=== PATIENT | female | born 1965 | race Two or more races ===

== ENCOUNTER 2017-04-06 10:31 | Emergency (ER) | payer OTHER ==
[2017-04-06 11:02] VITALS: BP 142/79; PULSE 100; TEMP 98.1; BMI 45.1
--- NOTE | 2017-04-06 11:14 | PDOC ---
History of Present Illness - General History Source: Patient Exam Limitations: No Limitations - History of Present Illness Initial Comments: 04/06/17 11:56 The patient is a 52 year old female with a significant PMH of COPD who presents to the emergency department with right leg pain and head soreness s/p fall and vomiting in the setting of chronic vaginal bleeding beginning approximately yesterday. The patient reports she has been intermittently vaginally bleeding for 2 years which has been addressed by her PCP but believes it has worsened recently. She reports feeling dizzy yesterday while going to the bathroom and falling on her right leg and head, believing her dizziness to be a result of her vaginal bleeding. She denies LOC. The patient denies chest pain, shortness of breath, and dizziness. Denies fever, chills, diarrhea and constipation. Denies dysuria, frequency, urgency and hematuria. Allergies: NKA Past surgical history: None reported. Social history: Current everyday smoker. No reported alcohol or drug use. PCP: From [place]. <Shaggy Kovacs - Last Filed: 04/06/17 12:25> - General History Source: Patient Exam Limitations: No Limitations <Ching March - Last Filed: 04/09/17 21:23> - General Chief Complaint: Vaginal Bleeding Stated Complaint: LT SIDE PAIN Time Seen by Provider: 04/06/17 11:14 Past History <Shaggy Kovacs - Last Filed: 04/06/17 12:25> - Past Medical History Asthma: Yes COPD: Yes - Reproductive History Cervical CA: No Dysfunctional Uterine Bleeding: No Ectopic : No Endometrial CA: No Polycystic Ovaries: No Tubal Ligation: No - Immunization History Immunization Up to Date: Yes - Suicide/Smoking/Psychosocial Hx Smoking Status: Yes Smoking History: Current every day smoker Have you smoked in the past 12 months: Yes Number of Cigarettes Smoked Daily: 10 Cigars Per Day: 2 Information on smoking cessation initiated: Yes 'Breaking Loose' booklet given: 04/06/17 Hx Alcohol Use: No Drug/Substance Use Hx: No Substance Use Type: None <Ching March - Last Filed: 04/09/17 21:23> - Past Medical History Allergies/Adverse Reactions: Allergies Allergy/AdvReac Type Severity Reaction Status Date / Time No Known Allergies Allergy Verified 04/06/17 10:55 Home Medications: Ambulatory Orders Albuterol Sulfate Inhaler - [Ventolin Hfa Inhaler -] 1 - 2 inh PO Q4H #1 inhaler 08/11/15 Cyclobenzaprine HCl [Flexeril -] 10 mg PO TID #21 tablet 04/06/17 Lidocaine 5% Patch [Lidoderm Patch -] 1 patch TP DAILY PRN #30 patch 04/06/17 Naproxen [Naprosyn -] 500 mg PO BID PRN #14 tablet 04/06/17 Review of Systems - Review of Systems Able to Perform ROS?: Yes Comments:: 04/06/17 11:56 GENERAL/CONSTITUTIONAL: No fever or chills. No weakness. HEAD, EYES, EARS, NOSE AND THROAT: No change in vision. No ear pain or discharge. No sore throat. CARDIOVASCULAR: No chest pain or shortness of breath. RESPIRATORY: No cough, wheezing, or hemoptysis. GASTROINTESTINAL: (+) Vomiting. No diarrhea or constipation. GENITOURINARY: (+) Vaginal bleeding. No dysuria, frequency, or change in urination. MUSCULOSKELETAL: (+) Right leg pain. No joint pain. No neck or back pain. SKIN: No rash NEUROLOGIC: No headache, vertigo, loss of consciousness, or change in strength/ sensation. ENDOCRINE: No increased thirst. No abnormal weight change. HEMATOLOGIC/LYMPHATIC: No anemia, easy bleeding, or history of blood clots. ALLERGIC/IMMUNOLOGIC: No hives or skin allergy. <Shaggy Kovacs - Last Filed: 04/06/17 12:25> *Physical Exam - Vital Signs Last Vital Signs Temp Pulse Resp BP Pulse Ox 98.1 F 100 H 20 142/79 100 04/06/17 10:57 04/06/17 10:57 04/06/17 10:57 04/06/17 10:57 04/06/17 10:57 - Physical Exam Comments: 04/06/17 12:25 GENERAL: Awake, alert, and fully oriented, in no acute distress HEAD: No signs of trauma EYES: PERRLA, EOMI, sclera anicteric, conjunctiva clear ENT: Auricles normal inspection, hearing grossly normal, nares patent, oropharynx clear without exudates. Moist mucosa NECK: Normal ROM, supple, no lymphadenopathy, JVD, or masses LUNGS: Breath sounds equal, clear to auscultation bilaterally. No wheezes, and no crackles HEART: Regular rate and rhythm, normal S1 and S2, no murmurs, rubs or gallops ABDOMEN: Soft, nontender, normoactive bowel sounds. No guarding, no rebound. No masses EXTREMITIES: (+) Right hip, knee, and ankle tenderness to palpation. Normal range of motion, no edema. No clubbing or cyanosis. No cords, erythema, or tenderness NEUROLOGICAL: Cranial nerves II through XII grossly intact. Normal speech. SKIN: Warm, Dry, normal turgor, no rashes or lesions noted. <Shaggy Kovacs - Last Filed: 04/06/17 12:25> - Vital Signs Last Vital Signs Temp Pulse Resp BP Pulse Ox 98.1 F 100 H 20 142/79 100 04/06/17 10:57 04/06/17 10:57 04/06/17 10:57 04/06/17 10:57 04/06/17 10:57 <Ching aMrch - Last Filed: 04/09/17 21:23> ED Treatment Course - LABORATORY CBC & Chemistry Diagram: 04/06/17 12:30 04/06/17 12:30 <Ching March - Last Filed: 04/09/17 21:23> Medical Decision Making - Medical Decision Making 04/06/17 15:24 Ms. Sampson is a 52 yo F with multiple medical problems She presents to the ER s/p a fall with leg pain Pt denies lightheadedness or dizziness Pt denies chest pain On examination: Pt is ambulatory with a cane RRR CTA B/L Lower abdominal tenderness to palpation Tenderness through out the entire right leg Will eval for anemia, electrolyte abnormality, subtle fracture Laboratory Tests 08/11/15 08/11/15 04/06/17 02:12 02:12 12:30 WBC 10.1 H 12.2 H Hgb 9.3 L D 9.4 L Hct 30.4 L 30.4 L Plt Count 497 H D 425 Anion Gap 9 Creatinine 1.1 H D Serum , Qual 04/06/17 04/06/17 12:30 12:30 WBC Hgb Hct Plt Count Anion Gap 10 Creatinine 0.9 Serum , Qual Negative Pt is not anemic US: fibroid uterus CT head: no acute intracranial hemorrhage CT C spine: facet hypertrophy, disc bulge, Xrays not read yet Prelimilarily read as negative for hip fracture, knee fracture or dislocation, ankle fracture or dislocation HGB stable as compared to 2 years ago Pt is walking around the ER requesting to be discharged Will discharge to home Will ask to follow up- with PMD Clinical impression: Dysfunctional Uterine Bleeding, initial presentation Fibroid uterus, initial presentation Fall from standing height, initial presentation <Ching March - Last Filed: 04/09/17 21:23> *DC/Admit/Observation/Transfer - Attestations Scribe Attestion: 04/06/17 11:57 Documentation prepared by Shaggy Kovacs, acting as medical driver for Ching March MD. . <Shaggy Kovacs - Last Filed: 04/06/17 12:25> - Discharge Dispostion Admit: No <Ching March - Last Filed: 04/09/17 21:23> Diagnosis at time of Disposition: Fall from standing Qualifiers: Encounter type: initial encounter Qualified Code(s): W19.XXXA - Unspecified fall, initial encounter Head trauma Qualifiers: Encounter type: initial encounter Qualified Code(s): S09.90XA - Unspecified injury of head, initial encounter Fibroid uterus Qualifiers: Uterine leiomyoma location: unspecified location Qualified Code(s): D25.9 - Leiomyoma of uterus, unspecified - Discharge Dispostion Disposition: HOME Condition at time of disposition: Stable - Prescriptions Prescriptions: Cyclobenzaprine HCl [Flexeril -] 10 mg PO TID #21 tablet Lidocaine 5% Patch [Lidoderm Patch -] 1 patch TP DAILY PRN #30 patch PRN Reason: Pain Naproxen [Naprosyn -] 500 mg PO BID PRN #14 tablet PRN Reason: Pain - Patient Instructions Printed Discharge Instructions: DI for Uterine Fibroids, DI for Closed Head Injury Additional Instructions: Ms Sampson Thanks for coming in to the ER Please be sure to follow up with your primary care physician and your groundhand Return to the ER for any other concerns or complaints
[2017-04-06] MEDS ORDERED: IBUPROFEN 600 MG TABLET (FP) PO ONE ×2 (11:48→12:34)
[2017-04-06] MEDS ORDERED: METHOCARBAMOL 500 MG TABLET PO ONE (11:48)
[2017-04-06] MEDS ORDERED: METHOCARBAMOL 500 MG TABLET ONE (12:34)
[2017-04-06 12:41] LABS: BASO % 0.8 % (0-2.0); EOS % 1.7 % (0-4.5); HEMATOCRIT 30.4 % (32.4-45.2); HEMOGLOBIN 9.4 GM/dL (10.7-15.3); LYMPH % 19.6 % (8-40); MCHC 31.1 g/dl (32.0-36.0); MEAN CELL VOLUME 77.3 fl (80-96); MEAN PLT VOLUME 7.4 fl (7.5-11.1); MONO % 5.7 % (3.8-10.2); NEUT % 72.2 % (42.8-82.8); PLATELET COUNT 425 K/MM3 (134-434); RBC 3.93 M/mm3 (3.60-5.2); WHITE BLOOD COUNT 12.2 K/mm3 (4.0-10.0)
[2017-04-06 12:54] LABS: INR 1.04 (0.82-1.09); PROTHROMBIN TIME (PATIENT) 11.8 SEC (9.98-11.88)
[2017-04-06 13:24] LABS: ALBUMIN 3.1 g/dl (3.4-5.0); ALK PHOS 61 U/L (45-117); ANION GAP 10 (8-16); BILIRUBIN,TOTAL 0.3 mg/dL (0.2-1.0); BLOOD UREA NITROGEN 8 mg/dL (7-18); CHLORIDE 107 mmol/L (98-107); CO2 21 mmol/L (21-32); CREATININE 0.9 mg/dL (0.55-1.02); GLUCOSE,RANDOM 157 mg/dL (74-106); POTASSIUM 3.9 mmol/L (3.5-5.1); SGOT/AST 14 U/L (15-37); SGPT/ALT 19 U/L (12-78); SODIUM 138 mmol/L (136-145); TOT PROT 7.1 g/dl (6.4-8.2)
== END 2017-04-06 15:46 | disposition home or self-care (01) ==
LOC: JER 10:31
DX: S09.8XXA Other specified injuries of head, initial encounter (principal); M25.561 Pain in right knee; D25.9 Leiomyoma of uterus, unspecified; W18.39XA Other fall on same level, initial encounter; Y93.89 Activity, other specified; Y92.031 Bathroom in apartment as the place of occurrence of the external cause; Y99.8 Other external cause status
CPT/HCPCS: 36415; 70450-TC; 72125-TC; 73523-TC-FY; 73562-TC-RT-FY; 73610-TC-RT-FY; 76856-TC; 80053; 84703; 85025; 85610; 86850; 86900; 86901; 99284-25

== ENCOUNTER 2021-06-29 04:53 | Emergency (ER) | payer OTHER ==
[2021-06-29 05:08] VITALS: BP 144/82; PULSE 62; TEMP 98.4; BMI 37.1
[2021-06-29] MEDS ORDERED: ACETAMINOPHEN 325 MG TABLET (FP) PO ONE (06:07)
[2021-06-29] MEDS ORDERED: ACETAMINOPHEN 325 MG TABLET (FP) ONE (06:10)
[2021-06-30] MEDS ORDERED: DIPHTH,PERTUSS(ACELL),TET 0.5 ML DISP.SYRIN IM ONE (10:04)
[2021-06-30] MEDS ORDERED: IBUPROFEN 600 MG TABLET (FP) PO ONE (10:04)
== END 2021-06-29 06:23 | disposition home or self-care (01) ==
LOC: JER 04:53
PROC: 3E0234Z Introduction of Serum, Toxoid and Vaccine into Muscle, Percutaneous Approach (ICD-10-PCS; principal; 2021-06-29)
DX: M79.672 Pain in left foot (principal)
CPT/HCPCS: 73630-TC-LT; 90471; 99284-25

== ENCOUNTER 2022-01-14 11:49 | Emergency (ER) | payer OTHER ==
[2022-01-14 12:06] VITALS: BP 132/73; PULSE 74; RESP 20; TEMP 98.6; BMI 36.6
[2022-01-14] MEDS ORDERED: ACETAMINOPHEN 500 MG TABLET (FP) PO ONE (12:43)
== END 2022-01-14 14:39 | disposition home or self-care (01) ==
LOC: JER 11:49
DX: M79.606 Pain in leg, unspecified (principal)
CPT/HCPCS: 0241U-QW; 71045-TC-FY; 93005; 93010; 99284-25

== ENCOUNTER 2022-02-19 06:35 | Observation (INO) | payer OTHER ==
[2022-02-19 06:54] VITALS: BP 130/72; PULSE 65; RESP 22; TEMP 98.9; BMI 35.4
[2022-02-19] MEDS ORDERED: ACETAMINOPHEN 325 MG TABLET (FP) PO ONE (07:39)
[2022-02-19] MEDS ORDERED: ALBUTEROL SO4 2.5/IPRATROPIUM 0.5 INH SOL 3 ML VIAL.NEB. NEB ONE ×2 (08:09→10:59)
[2022-02-19] MEDS ORDERED: ACETAMINOPHEN 325 MG TABLET (FP) ONE (10:59)
[2022-02-19 12:23] LABS: BASO % 0.6 % (0-2.0); EOS % 2.4 % (0-4.5); HEMATOCRIT 51.7 % (32.4-45.2); HEMOGLOBIN 16.6 GM/dL (10.7-15.3); LYMPH % 39.8 % (8-40); MCH 28.6 pg (25.7-33.7); MEAN CELL VOLUME 89.2 fl (80-96); MEAN PLT VOLUME 8.9 fl (7.5-11.1); MONO % 6.9 % (3.8-10.2); NEUT % 50.3 % (42.8-82.8); PLATELET COUNT 269 10^3/uL (134-434); RDW 14.6 % (11.6-15.6); WHITE BLOOD COUNT 7.9 K/mm3 (4.0-10.0)
[2022-02-19 12:30] LABS: INR 0.97 (0.83-1.09); PROTHROMBIN TIME (PATIENT) 11.2 SEC (9.7-13.0)
[2022-02-19 12:33] LABS: ACTIVATED PTT 24.9 SECONDS (25.2-36.5)
[2022-02-19 12:43] LABS: ALBUMIN 3.6 g/dl (3.4-5.0); BLOOD UREA NITROGEN 13.1 mg/dL (7-18); CALCIUM 9.2 mg/dL (8.5-10.1); MAGNESIUM 2.2 mg/dL (1.8-2.4)
[2022-02-19 12:45] LABS: EPI CELLS >36 /uL (0-25.1); HYALINE CASTS 1 /uL (0-3.1); PH,URINE 5.5 (5.0-8.0); URINE APPEARANCE CLOUDY; URINE BACTERIA 1951 /uL (0-1359); URINE BILIRUBIN NEGATIVE (NEGATIVE); URINE COLOR YELLOW; URINE GLUCOSE (UA) NEGATIVE (NEGATIVE); URINE KETONE NEGATIVE (NEGATIVE); URINE LEUK ESTERASE TRACE (NEGATIVE); URINE NITRITE NEGATIVE (NEGATIVE); URINE PROTEIN TRACE (NEGATIVE); URINE RBC 13 /uL (0-23.9); URINE UROBILINOGEN 0.2 mg/dL (0.2-1.0); URINE WBC 44 /uL (0-25.8)
[2022-02-19 12:47] LABS: CREATININE 0.7 mg/dL (0.55-1.3)
[2022-02-19 12:48] LABS: BILIRUBIN,TOTAL 0.9 mg/dL (0.2-1); TOT PROT 7.4 g/dl (6.4-8.2)
[2022-02-19 12:51] LABS: N-TERMINAL BNP 46.5 pg/ml (5-125)
[2022-02-20] MEDS ORDERED: ENOXAPARIN NA (PORCINE) 40 MG/0.4 ML DISP.SYRIN SQ SCH (10:00)
== END 2022-02-19 15:20 | disposition left against medical advice (07) ==
LOC: JER 06:35 → JERBED 09:24
PROVIDERS: ADMIT Internal Medicine; ATTEND Internal Medicine
PROC: 3E0F7GC Introduction of Other Therapeutic Substance into Respiratory Tract, Via Natural or Artificial Opening (ICD-10-PCS; principal; 2022-02-19)
DX: R94.31 Abnormal electrocardiogram [ECG] [EKG] (principal); E66.8 Other obesity; Z68.35 Body mass index [BMI] 35.0-35.9, adult; R06.02 Shortness of breath; G89.29 Other chronic pain; M79.606 Pain in leg, unspecified; J45.909 Unspecified asthma, uncomplicated; Z29.8 Encounter for other specified prophylactic measures
CPT/HCPCS: 0241U-QW; 36415; 80053; 81003; 83735; 83880; 84484; 85025; 85610; 85730; 87086; 93005; 93010; 94640; 99285-25; G0378